=== PATIENT | female | born 1975 | race Caucasian/White ===

== ENCOUNTER 2017-11-14 07:54 | Inpatient (IN) | payer BC ==
[~2017-11-14] VITALS: Ht 160 cm; Wt 98.4 kg
[2017-11-14 08:00] VITALS: BP 148/83
[2017-11-14 08:29] LABS: URINE BILIRUBIN NEGATIVE (Negative); URINE BLOOD NEGATIVE (Negative); URINE CLARITY CLEAR; URINE COLOR YELLOW; URINE GLUCOSE-RANDOM* NEGATIVE (Negative); URINE KETONES NEGATIVE (Negative); URINE LEUKOCYTES NEGATIVE (Negative); URINE NITRITE NEGATIVE (Negative); URINE PROTEIN (DIPSTICK) NEGATIVE (Negative); URINE SPECIFIC GRAVITY 1.025 (1.005-1.035); URINE UROBILINOGEN 0.2 E.U./dl (0.2-1.0)
[2017-11-14 08:58] LABS: ABSOLUTE NEUTROPHILS 11.1 thou/uL (1.4-8.2); BASOPHILS 0.6 % (0.0-2.0); EOSINOPHILS 0.5 % (0.0-3.0); HEMATOCRIT 39.3 % (37.0-47.0); HEMOGLOBIN 13.3 gm/dL (12.0-15.0); MCH 28.6 pg (26.0-34.0); MCHC 33.8 g/dL (28.0-37.0); MCV 84.6 fL (80.0-100.0); MONOCYTES 5.1 % (1.0-8.0); PLATELET COUNT 233 thou/uL (150-400); POLYS 85.8 % (36.0-66.0); RBC 4.64 mil/uL (4.20-5.00)
[2017-11-14 09:10] LABS: ANION GAP 8 mmol/L (7-16); BUN 17 mg/dL (7-18); CALCIUM 9.1 mg/dL (8.5-10.1); CHLORIDE 104 mmol/L (98-107); CO2 28 mmol/L (21-32); CREATININE 0.8 mg/dL (0.6-1.0); GLUCOSE 105 mg/dL (74-106); POTASSIUM 4.3 mmol/L (3.5-5.1); SODIUM 140 mmol/L (136-145)
[2017-11-14 09:15] LABS: ALBUMIN 3.9 g/dL (3.4-5.0); DIRECT BILIRUBIN < 0.1 mg/dL (<0.1-0.3); SGOT 24 U/L (15-37); SGPT 45 U/L (30-65); TOTAL BILIRUBIN 0.5 mg/dL (<0.1-1.0); TOTAL PROTEIN 7.6 g/dL (6.4-8.2)
[2017-11-14] MEDS ORDERED: WELLBUTRIN SR150 MG PO (10:26)
[2017-11-14 10:27] VITALS: BP 129/66
[2017-11-14] MEDS ORDERED: NEURONTIN 300300 M1 PO (10:27)
[2017-11-14] MEDS ORDERED: METOPROLOL SUCC50 MG PO (10:27)
[2017-11-14] MEDS ORDERED: FLEXERIL PO (10:27)
[2017-11-14 10:39] VITALS: BP 129/66
[2017-11-14 11:30] VITALS: BP 131/74
[2017-11-14 19:27] VITALS: BP 103/63
[2017-11-15 03:55] VITALS: BP 108/58
[2017-11-15 07:00] VITALS: BP 138/110
[2017-11-15] MEDS ORDERED: CEFDINIR300 MG PO (13:38)
[2017-11-15 14:47] VITALS: BP 138/110
== END 2017-11-15 15:20 | disposition home or self-care (01) | DRG 603 ==
LOC: ER 07:54 → 4E 09:57 → EROBS 09:57 → 4E 10:43 → ENTRNSPT 11-15 15:06 → EDTRNSPTSTS 11-15 15:09 → 4E 11-15 15:20
PROVIDERS: Emergency Medicine
DX: L03.113 Cellulitis of right upper limb (principal); Z79.899 Other long term (current) drug therapy; Z87.891 Personal history of nicotine dependence; Z91.041 Radiographic dye allergy status; Z90.13 Acquired absence of bilateral breasts and nipples; Z90.710 Acquired absence of both cervix and uterus; Z85.3 Personal history of malignant neoplasm of breast
CPT/HCPCS: 10084

== ENCOUNTER → 2019-02-03 | Outpatient (CLI) | payer OTHER ==
[~2019-02-03] MED LIST: CEFDINIR300 MG PO; FLEXERIL PO; METOPROLOL SUCC50 MG PO; NEURONTIN 300300 M1 PO; WELLBUTRIN SR150 MG PO
== END ==
LOC: CAT 07:55
DX: Z13.6 Encounter for screening for cardiovascular disorders (principal); I25.10 Atherosclerotic heart disease of native coronary artery without angina pectoris; E78.00 Pure hypercholesterolemia, unspecified